=== PATIENT | female | born 1990 | race Caucasian/White ===

== ENCOUNTER 2017-05-06 22:49 | Emergency (ER) | payer BC ==
[2017-05-06] MEDS ORDERED: Sodium Chloride 0.9% 1,000 ML PRIMARY IV ONE (22:57)
[2017-05-06] MEDS ORDERED: ONDANSETRON 4 MG/2 ML VIAL IVP ONE (22:57)
[2017-05-06 23:06] LABS: BASOPHILS # (AUTO) 0.18 10*3/UL; BASOPHILS % (AUTO) 1.4 % (0-1); EOSINOPHILS # (AUTO) 0.35 10*3/UL; EOSINOPHILS % (AUTO) 2.8 % (0-8); HEMATOCRIT 36.7 % (37.0-47.0); HEMOGLOBIN 12.8 g/dL (12.0-16.0); LYMPHOCYTES # (AUTO) 5.87 10*3/uL; MEAN CORPUSCULAR HEMOGLOBIN 31.7 PG (27-31); MEAN CORPUSCULAR HGB CONC 34.9 g/dL (33-37); MEAN CORPUSCULAR VOLUME 90.8 FL (81-99); MEAN PLATELET VOLUME 9.4 FL (7.4-12.2); MONOCYTES # (AUTO) 0.84 10*3/UL (0.3-0.8); MONOCYTES % (AUTO) 6.6 % (5-15); NEUTROPHILS # (AUTO) 5.45 10*3/UL; NEUTROPHILS % (AUTO) 42.8 % (50-80); RED BLOOD COUNT 4.04 10^6/uL (4.20-5.40)
--- NOTE | 2017-05-06 23:06 | PDOC ---
Multiple Trauma HPI - General Chief Complaint: Neurological Complaints Stated Complaint: SEIZURE, FALL Date Seen by Provider: 05/06/17 Time Seen by Provider: 23:00 Source: POSITIVE: EMS Exam Limitations: POSITIVE: Clinical condition, Intoxication Nurse's Notes Reviewed & Considered: Yes EMS Report Reviewed & Considered: Verbal - History of Present Illness Initial Comments: Patient is brought in via EMS with reports of having fallen down a stair flight of approximately 15 stairs while holding her baby. Patient has been drinking tonight and is highly combative and incoherent. Patient was recently diagnosed with epilepsy per her , and did not take her Trileptal today because she was going to be drinking alcohol tonight at a pre-wedding alliance party. Her fall was unwitnessed by any adults. There were some children in the house that ran to get adults to say she had fallen. It is uncertain exactly how far she may have fallen. EMS brought her in after giving her 2 mg of IV Ativan, c-collar and long board precautions in place. Have you received a tetanus shot in the past 10 years?: Unknown Timing: REPORTS: Abrupt Duration: 1/2 hour Severity: Moderate Associated Symptoms: REPORTS: Memory Impairment, Lost Consciousness, Other ( intoxicated) Any Prior Injuries Related to Current Complaint?: No - Patient Home Medications Home Medications: Home Medications Nortriptyline HCl 75 mg PO BEDTIME 05/06/17 Topiramate 25 mg PO DAILY 05/06/17 - Patient Allergies Allergies/Adverse Reactions: Allergies Allergy/AdvReac Type Severity Reaction Status Date / Time No Known Allergies Allergy Verified 05/06/17 23:29 ROS - Limitations ROS Limitations: Intoxication, Other (please comment) (obtunded, no further ROS possible) Multiple Trauma Exam - General Appearance General Appearance: POSITIVE: Obtunded, Spinal Immobilization, Uncooperative - HEENT Head / Face: POSITIVE: Atraumatic (No stigmata of trauma noted), Normal Inspection, No Facial Swelling Eyes: POSITIVE: Inspection Normal, PERRL, EOM's Intact, Eyelids Uninjured, Conjunctivae Uninjured, No Nystagmus, No Globe Trauma, Sclera Normal, Normal Corneal Inspection Ears: POSITIVE: Ears Normal Inspection, Auricle Normal Nose: POSITIVE: Inspection Normal, No Apparent Trauma, Nares Normal, No CSF Leak Oropharynx: POSITIVE: External Inspection Nml, Pharynx Inspect. Nml, Airway Intact, Moist Mucous Membranes, No Oral Injury, Lips Normal, Gums Normal, No Drooling, No Thrush Dental: POSITIVE: No Dental Injury - Pupil Size Pupil Size: 5 mm: Bilateral - Neck Neck: POSITIVE: Altered Mental Status, Recent Alcohol Ingestion - Respiratory / CVS Respiratory / CVS: POSITIVE: Chest Non Tender, No Ecchymosis, Breath Sounds Normal, No Respiratory Distress, Heart Sounds Normal, Tachycardia - Abdomen Abdomen: Soft: (All Quadrants), Normal Bowel Sounds: (All Quadrants), Denies Tenderness: (All Quadrants), No Splenomegaly: (All Quadrants), No Hepatomegaly: (All Quadrants), No Guarding: (All Quadrants), No Rebound: (All Quadrants), No Palpable Pulse: (All Quadrants), No Palpabale Mass: (All Quadrants), No Distention: (All Quadrants), No Rigidity: (All Quadrants) - Genital / Rectal Genital / Rectal: POSITIVE: Normal Ext. Inspection - Neuro / Psych Neuro / Psych: POSITIVE: Obtunded - Skin Skin: POSITIVE: Intact, Warm, Dry - Back Back: POSITIVE: Normal Inspection - Extremities Extremity Assessment: Non-Tender: (ALL), Normal ROM: (ALL), No Edema: (ALL), Normal Inspection: (ALL), No Swelling: (ALL), Pelvis Stable: (ALL) Joint Exam: POSITIVE: Joints Normal, Normal ROM Multiple Trauma Progress - Results Reviewed by me Xrays/CTs/US Reviewed by me: Yes Discussed with Radiologist: Yes Lab Results Reviewed: Yes Lab Results:: Laboratory Results 05/06/17 05/07/17 05/07/17 Range/Units 22:45 00:18 00:19 WBC 12.71 H (4.8-10.8) 10^3/uL RBC 4.04 L (4.20-5.40) 10^6/uL Hgb 12.8 (12.0-16.0) g/dL Hct 36.7 L (37.0-47.0) % MCV 90.8 (81-99) FL MCH 31.7 H (27-31) PG MCHC 34.9 (33-37) g/dL RDW Std Deviation 42.4 (39-50) fL RDW Coeff of Brenna 13.1 (11.5-14.5) % Plt Count 434 H (140-350) 10*3/uL MPV 9.4 (7.4-12.2) FL Immature Gran % (Auto) 0.2 (0-5) % Neut % (Auto) 42.8 L (50-80) % Lymph % (Auto) 46.2 (10-50) % [place] % (Auto) 6.6 (5-15) % Eos % (Auto) 2.8 (0-8) % Baso % (Auto) 1.4 H (0-1) % Immature Gran # (Auto) 0.02 10*3/UL Neut # (Auto) 5.45 10*3/UL Lymph # (Auto) 5.87 10*3/uL [place] # (Auto) 0.84 H (0.3-0.8) 10*3/UL Eos # (Auto) 0.35 10*3/UL Baso # (Auto) 0.18 10*3/UL WBC Morphology Comment Normal morphology (NORM) Plt Morphology Comment Normal morphology (NORM) RBC Morph Comment Normal morphology (NORM) PT 10.8 (9.7-11.4) secs INR 1.02 (0.00-5.90) N/A Sodium 141 (135-145) meq/L Potassium 2.6 L (3.8-5.2) meq/L Chloride 109 (98-112) meq/L Carbon Dioxide 17 L (23-33) meq/L Anion Gap 15 (5-20) BUN 8 (7-22) mg/dL Creatinine 0.8 (0.50-1.20) mg/dL Estimated GFR > 60 (>60 ml/min/1.73m(2)) BUN/Creatinine Ratio 10.00 (6-20) Glucose 127 H (78-110) mg/dL Calculated Osmolality 291.0 (267-292) mOsm/kg Lactic Acid 3.8 H (0.70-2.10) MMOL/L Calcium 8.8 (8.7-10.7) mg/dL Total Bilirubin 0.4 (0.3-1.2) mg/dL AST 25 (8-39) IU/L ALT 23 (9-52) IU/L Alkaline Phosphatase 51 (38-126) IU/L Total Protein 6.9 (6.1-8.0) g/dL Albumin 4.4 (3.5-4.8) g/dL Globulin 2.5 (2.50-4.10) g/dL Albumin/Globulin Ratio 1.70 (1.3-2.0) mg/g Amylase 97 (30-110) U/L Lipase 176 (23-300) IU/L TSH 1.88 (0.2700-4.2000) uIU/mL Serum HCG, Qual Negative Ur Collection Type Cath specimen Cath specimen Urine Color Yellow Urine Clarity Clear (CLEAR) Urine pH 5.0 (5.0-8.5) Ur Specific [place] <=1.005 (1.005-1.030) U Specif Grav (Refrac) 1.005 Urine Protein Negative (NEG) mg/dl Urine Glucose (UA) Negative (NEG) mg/dL Urine Ketones Negative (NEG) Urine Occult Blood Negative (NEG) Urine Nitrate Negative (NEG) Urine Bilirubin Negative (NEG) Urine Urobilinogen 0.2 (0.2) EU/dL Ur Leukocyte Esterase Negative (NEG) Urine Opiates Screen Negative (NEG) Ur Buprenorphine Negative (NEG) Ur Oxycodone Screen Negative (NEG) Urine Methadone Screen Negative (NEG) Ur Propoxyphene Screen Negative (NEG) Barbiturate Screen Negative (NEG) U Tricyclic Antidepress Positive H (NEG) Phencyclidine Screen Negative (NEG) Amphetamines Screen Negative (NEG) U Methamphetamines Scrn Negative (NEG) Benzodiazepines Screen Positive H (NEG) Cocaine Screen Negative (NEG) U Marijuana (THC) Screen Positive H (NEG) Serum Alcohol 129 H (0-10) mg/dL EKG Interpreted/Reviewed By Me:: Yes EKG Interpretation:: POSITIVE: Normal Sinus Rhythm - Patient's Progress Pain Medication Addressed: POSITIVE: Not Applicable Re-Examine Time:: 01:11 Re-Examine Time: 02:27 Re-Examine Comment: Patient is awakened, she is cognizant and alert oriented to person place and time. C-collar was removed by me at 0220 hrs. Status: POSITIVE: Improved MDM / ED Course: Patient was examined, an IV had been established by EMS, blood drawn and sent to the lab for studies, radiographic examinations and EKGs were obtained. Findings: CBC is unremarkable. Comprehensive metabolic panel shows a potassium of 2.6. Beta hCG is negative. TSH is normal. Lipase and amylase are normal. CT scan of her head shows no acute intracranial abnormalities. CT scan cervical spine shows no acute osseous abnormalities and normal C-spine. CT scan chest and pelvis shows no acute intra-abdominal or intrathoracic abnormalities. Urinalysis is negative. Urine drug screen is positive for benzodiazepines, THC, and Tri-cyclics. Blood alcohol is 129. Assessment: Acute alcohol intoxication. #2 fall with no stigmata of trauma and negative CT scans. Plan: Discharge home Tylenol and ibuprofen as needed follow-up with primary care physician upon return home. - Consult Counseled: POSITIVE: Patient, Family, RE: Lab Results, RE: Radiology Results, RE : DX, RE: Need for F/U Patient Care Time - Estimated PCT Patient Care Time (In Minutes): 60 Vital Signs - Recent Vital Signs Vital Signs: Vital Signs (Last 8 hours) Temp Pulse Resp BP Pulse Ox 05/06/17 23:00 96.5 F L 136 H 16 96/62 100 - VS Reviewed Vital Signs Reviewed: Yes Discharge Clinical Impression: Alcoholic intoxication, Fall (on) (from) other stairs and steps, initial encounter Discharge Disposition: Discharged to Home Condition: Stable Patient Instructions Given at Discharge: Fall Prevention (ED), Alcohol Intoxication (ED)
[2017-05-06 23:07] LABS: BLOOD UREA NITROGEN 8 mg/dL (7-22); CALCIUM 8.8 mg/dL (8.7-10.7); EST GLOMERULAR FILTRATION > 60 (>60 ml/min/1.73m(2)); SERUM ALBUMIN 4.4 g/dL (3.5-4.8)
[2017-05-06 23:11] LABS: PLATELET MORPHOLOGY COMMENT NORMAL MORPHOLOGY (NORM); RBC MORPHOLOGY COMMENT NORMAL MORPHOLOGY (NORM); WBC MORPHOLOGY COMMENT NORMAL MORPHOLOGY (NORM)
[2017-05-06 23:16] LABS: LIPASE 176 IU/L (23-300)
--- NOTE | 2017-05-06 23:18 | EKG ---
[address] [address] Measurements Intervals [place] Rate: 143 P: 80 [place]: 127 QRS: 75 QRSD: 94 T: 78 QT: 292 QTc: 375 Interpretive Statements SINUS TACHYCARDIA, POSSIBLE RIGHT VENTRICULAR CONDUCTION DELAY No previous ECG available for comparison Electronically Signed On 05-07-17 09:35:51 MDT by Des Ramirez [email or web address]
--- NOTE | 2017-05-07 00:09 | DI ---
CLINICAL HISTORY: Patient was intoxicated and fell down an unknown number of stairs. PREVIOUS EXAM: None available. TECHNIQUE: Multiple helically acquired CT images are obtained through the brain without contrast. FINDINGS: CT images demonstrate normal, symmetric ventricles and other CSF containing spaces. There is no mass, hemorrhage nor midline shift. The surrounding soft tissue and osseous structures are unre markable. IMPRESSION: 1. No acute intracranial pathology.
--- NOTE | 2017-05-07 00:10 | DI ---
CLINICAL HISTORY: Patient was intoxicated and fell down an unknown number of stairs. PREVIOUS EXAM: None available. TECHNIQUE: Multiple helically acquired CT images are obtained through the cervical spine with sagitt al and coronal reconstructions. FINDINGS: CT images demonstrate anatomic alignment without fractures. Vertebral body height is prese rved. Intervertebral disc height is also preserved. The prevertebral soft tissues are unremarkable. T he skull base is also unremarkable. Lung apices are clear. IMPRESSION: 1. Normal cervical spine.
[2017-05-07 00:18] LABS: BILIRUBIN,URINE NEGATIVE (NEG); CLARITY,URINE CLEAR (CLEAR); COLOR,URINE YELLOW; GLUCOSE, URINE (UA) NEGATIVE (NEG); NITRATE,URINE NEGATIVE (NEG); OCCULT BLOOD,URINE NEGATIVE (NEG); PROTEIN,URINE NEGATIVE (NEG); UROBILINOGEN,URINE 0.2 EU/dL (0.2)
[2017-05-07 00:19] LABS: URINE SAMPLE TYPE CATH SPECIMEN; URINE SPECIFIC GRAVITY - MAN 1.005
[2017-05-07 00:19] LABS: URINE SAMPLE TYPE CATH SPECIMEN
[2017-05-07 00:28] LABS: AMPHETAMINE SCREEN NEGATIVE (NEG); CANNABINOID SCREEN,URINE POSITIVE (NEG); COCAINE SCREEN NEGATIVE (NEG); METHADONE URINE SCREEN NEGATIVE (NEG); METHAMPHETAMINES SCREEN,URINE NEGATIVE (NEG); OPIATE SCREEN,URINE NEGATIVE (NEG)
--- NOTE | 2017-05-07 00:34 | DI ---
CLINICAL HISTORY: Patient was intoxicated and fell down an unknown number of stairs. PREVIOUS EXAM: None available. TECHNIQUE: Multiple helically acquired CT images are obtained through the chest following the intrav enous administration of iodinated contrast. FINDINGS: CT images demonstrate clear lungs. There is mild subsegmental atelectasis. The ribs are within normal limits. The aorta and pulmonary arteries are normal. There is no evidence of infiltrate or effusion. Skeletal structures are unremarkable.. IMPRESSION: 1. No acute intrathoracic pathology.
[2017-05-07 00:39] VITALS: TEMP 96.5
--- NOTE | 2017-05-07 00:39 | DI ---
CLINICAL HISTORY: Patient was intoxicated and fell down an unknown number of stairs. PREVIOUS EXAM: None available. TECHNIQUE: Multiple helically acquired CT images are obtained through the abdomen and pelvis followi ng intravenous administration of contrast. FINDINGS: CT images demonstrate clear lung bases. The urinary bladder is unremarkable. The liver, gallbladder, spleen, adrenals, pancreas and kidneys a re normal. There is no free air nor free fluid. The skeletal structures are unremarkable.. IMPRESSION: 1. No acute intra-abdominal pathology.
[2017-05-07 02:53] VITALS: RESP 18
== END 2017-05-07 02:42 | disposition home or self-care (01) ==
LOC: ER 22:49
DX: F10.129 Alcohol abuse with intoxication, unspecified (principal); W10.8XXA Fall (on) (from) other stairs and steps, initial encounter
CPT/HCPCS: 70450; 71260; 72125; 74177; 80053; 80305; 80320; 81003; 82150; 83605; 83690; 84443; 84703; 85025; 85610; 93005; 93010; 96374; 99283 ×2; J2405; J7030